=== PATIENT | female | born 1945 | race Caucasian/White ===

== ENCOUNTER 2016-12-03 09:30 | Outpatient (CLI) | payer MEDICARE | END 2016-12-03 09:31 | disposition home or self-care (01) | DX: N39.0 Urinary tract infection, site not specified (principal) ==

== ENCOUNTER 2023-03-01 14:14 | Outpatient (CLI) | payer MEDICARE ==
--- NOTE | 2023-03-01 15:57 | DEXA Report ---
PROCEDURE: Dexa Spine and/or Hip INDICATIONS: OSTEOPENIA TECHNIQUE: Dual energy x-ray absorptiometry (DXA) was performed on a [employer] System. Regions measur ed are the AP Spine, femoral neck, and if needed forearm. COMPARISON: None FINDINGS: Lumbar Spine: Bone Mineral Density 0.962 g/cm/cm,T score -1.8. Osteopenia Left Femoral Neck: Bone Mineral Density 0.799 g/cm/cm, T score -1.7. Osteopenia Left Hip: Bone Mineral Density 0.846 g/cm/cm,T score -1.3. Osteopenia (T score greater or equal to -1.0: NORMAL) (T score from -1.1 to -2.4: OSTEOPENIA) (T score less than or equal to -2.5 to: OSTEOPOROSIS) Impression: By WHO criteria, this patient has low bone density (osteopenia). Patients with diagnosis of osteoporosis or osteopenia should have regular bone mineral density assess ment. For those eligible for Medicare, routine testing is allowed once every 2 years. Testing frequ ency can be increased for patients who have rapidly progressing disease or for those who are receivin g medical therapy to restore bone mass. Reviewed by: Veronica Faye MD on 03/01/2023 3:56 PM PDT Approved by: Veronica Faye MD on 03/01/2023 3:56 PM PDT Station ID: [id number]
== END 2023-03-01 14:15 | disposition home or self-care (01) ==
LOC: DI 14:14
PROVIDERS: ATTEND Nurse Practitioner Family
DX: M85.89 Other specified disorders of bone density and structure, multiple sites (principal)

== ENCOUNTER 2023-04-28 13:15 | Outpatient (CLI) | payer MEDICARE ==
--- NOTE | 2023-04-28 18:22 | XRAY Report ---
PROCEDURE: Cervical Spine 2 View INDICATIONS: RIGHT SHOULDER PAIN TECHNIQUE: 3 view(s) of the cervical spine were acquired. COMPARISON: None. FINDINGS: Bones: No fractures or dislocations to the T1 level. The lateral masses of C1 appear intact on the odontoid view. No suspicious bony lesions. Generalized decreased osseous mineralization present. Di sc space narrowing and hypertrophic facet joints noted in the mid cervical spine Soft tissues: No prevertebral soft tissue swelling. 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
--- NOTE | 2023-04-28 18:31 | XRAY Report ---
PROCEDURE: Thoracic Spine 2 View INDICATIONS: RIGHT SHOULDER PAIN TECHNIQUE: 2 views of the thoracic spine were acquired. COMPARISON: None. FINDINGS: Bones: No fractures or dislocations. No suspicious bony lesions. 12 pairs of ribs are noted, and a ppear intact where visualized. Mild decreased osseous mineralization present as well as convex right thoracic scoliosis Soft tissues: No paravertebral stripe thickening. IMPRESSION: Osteopenia without fracture or malalignment Reviewed by: Rogelio Barroso MD on 04/28/2023 5:30 PM [facility] Approved by: Rogelio Barroso MD on 04/28/2023 5:30 PM [facility] Station ID: [id number]
== END 2023-04-28 13:16 | disposition home or self-care (01) ==
LOC: DI.S 13:15
PROVIDERS: ATTEND Nurse Practitioner Family
DX: M25.511 Pain in right shoulder (principal); M85.88 Other specified disorders of bone density and structure, other site; M47.812 Spondylosis without myelopathy or radiculopathy, cervical region; M50.30 Other cervical disc degeneration, unspecified cervical region

== ENCOUNTER 2023-08-24 09:38 | Outpatient (CLI) | payer MEDICARE | END 2023-08-24 23:59 | disposition home or self-care (01) | LOC: LAB.S 09:38 | PROVIDERS: ATTEND Physician Assistant | DX: N39.0 Urinary tract infection, site not specified (principal) | CPT/HCPCS: 87077; 87086; 87181 ==